=== PATIENT | female | born 1970 | race Caucasian/White ===

== ENCOUNTER → 2017-03-23 | Outpatient (CLI) | payer BC ==
[~2017-03-23] MED LIST: MOTRIN 600600 MG/TAB PO; PRENATAL TABS1 TAB
== END ==
LOC: MC.RAD 13:55
DX: Z12.31 Encounter for screening mammogram for malignant neoplasm of breast (principal)

== ENCOUNTER → 2017-03-30 | Outpatient (CLI) | payer BC | LOC: MC.RAD 12:56 | DX: N63 Unspecified lump in breast (principal) ==

== ENCOUNTER → 2017-04-07 | Outpatient (CLI) | payer BC | LOC: MC.RAD 07:55 | DX: N63 Unspecified lump in breast (principal) ==

== ENCOUNTER → 2024-05-18 | Outpatient (CLI) | payer BC ==
[2006-05-31 07:00] VITALS: TEMP 98.6
== END ==
LOC: MC.RAD 13:58
DX: Z12.31 Encounter for screening mammogram for malignant neoplasm of breast (principal)